=== PATIENT | male | born 1965 | race Caucasian/White ===

== ENCOUNTER 2020-12-22 19:39 | Emergency (ER) | payer BC ==
[~2020-12-22] VITALS: Ht 185.4 cm; Wt 111.1 kg
--- NOTE | 2020-12-22 19:39 | NUR ---
Patient to ER bed 08 to gown for evaluation. Side rails up.
--- NOTE | 2020-12-22 19:40 | NUR ---
ER MD CAI EXAMINING PATIENT.
--- NOTE | 2020-12-22 19:45 | NUR ---
PATIENT IS AWAKE AND ALERT. PATIENT C/O HAVING HIGH BLOOD PRESSURE READING AT HOME AND NOT TAKING CURRENT BP MEDS R/T SWOLLEN FEET. NO PAIN STATED. NO SIGNS OF SOB OR ACUTE DISTRESS NOTED. WILL CONTINUE TO MONITOR.
[2020-12-22 19:49] VITALS: BP_SYST 169
[2020-12-22] MEDS ORDERED: LOSARTAN POTASSIUM 25 MG TABLET PO ONE (20:00)
[2020-12-22] MEDS ORDERED: LOSA25TA3 PO (20:00)
[2020-12-22] MEDS ORDERED: cloNIDine HCL 0.1 MG TABLET ONE (20:05)
[2020-12-22 20:15] VITALS: BP_SYST 144
[2020-12-22] MEDS ORDERED: cloNIDine HCL 0.1 MG TABLET PO ONE (20:15)
--- NOTE | 2020-12-22 20:15 | NUR ---
Patient given written and verbal discharge instructions and verbalizes understanding. ER MD CAI discussed with patient the results and treatment provided. Patient in stable condition. ID arm band removed. Rx of COZAAR given. Patient educated on pain management and to follow up with PMD. Pain Scale 0/10. CURRENT BP 144/81, HR 90. SPO2 99%. Opportunity for questions provided and answered. Medication side effect fact sheet provided.
== END 2020-12-22 20:15 | disposition home or self-care (01) ==
LOC: SED 19:39
DX: I10 Essential (primary) hypertension (principal); M25.571 Pain in right ankle and joints of right foot; M25.572 Pain in left ankle and joints of left foot
CPT/HCPCS: 99283